=== PATIENT | female | born 1985 | race African-American/Black ===

== ENCOUNTER 2017-02-26 20:25 | Observation (INO) ==
--- NOTE | 2017-02-26 21:01 | Emergency Department Note ---
Arrival - Arrival Chief Complaint: Abscess Stated Complaint: RISEN ON BUTT AND HURTS BADLY ED Nursing Triage Note: Pt to [facility]ino with c/o risen between her butt cheek that she noticed on yesterday. Pt states the risen has been drainning. Mode of Arrival: Ambulatory Limitations: No Limitations Source: Patient, RN Notes Reviewed Time Seen by Provider: 02/26/17 20:41 - History of Present Illness HPI Narrative: The patient complains of an abscess of the left buttocks which came up yesterday. She states it has been draining today. She denies any fever. Her only complaint is pain. She has no history of previous abscess. She does have a history of diabetes. The patient is on Depo-Provera and cannot recall her last menstrual period. The last Depo shot was in July. Allergies/Adverse Reactions: Allergies Allergy/AdvReac Type Severity Reaction Status Date / Time No Known Allergies Allergy Verified 02/26/17 20:32 Home Medications: Home Medications Medication Instructions Recorded Confirmed Type Clotrimazole [Clotrimazole 1% 1 applic TOP BID #15 gm 10/11/16 02/26/17 Rx Cream] Metformin HCl 500 mg PO BID 10/11/16 02/26/17 History hydroCHLOROthiazide 25 mg PO DAILY 10/11/16 02/26/17 History [Hydrochlorothiazide] valACYclovir [Valtrex] 500 mg PO BID 02/26/17 02/26/17 History Review of System - Review of System 12 point system: reviewed and no additional remarkable complaints except as stated - Review of System Constitutional: Absent: fever Respiratory: Absent: cough Gastrointestinal: Absent: abdominal pain, nausea, vomiting, diarrhea, constipation Genitourinary female: Present: abnormal menses (On Depo-Provera). Absent: dysuria Medical,Surgical,& Family Hx - Medical History Cardio: History of: Hypertension Endocrine: History of: Diabetes Mellitus (NIDDM) - Surgical History Surgical History: noncontributory - Family History Family History: Reports;: Family Cancer, Family Diabetes, Family Hypertension - Social History Smoking Status: Current every day smoker Frequency of Alcohol Use: None Type of Drug Use: None Exam Physical Examination: GENERAL: Alert. No acute distress. HEENT: Normocephalic and atraumatic. There is no nasal drainage. No pharyngeal erythema or exudate. NECK: Normal inspection. Supple. No lymphadenopathy or meningismus. LUNGS: No respiratory distress. Clear to auscultation bilaterally, no wheezes, rales or rhonchi. HEART: Regular rate and rhythm. ABDOMEN: Soft, nontender and nondistended with normoactive bowel sounds. Rectal: Tender. No obvious mass on digital exam. There is a large abscess of the left buttocks extending down to the perianal and perineal area. There is a small area in the perineum that is draining purulent fluid. Examination of the abscess is somewhat limited due to the patient's morbid obesity. BACK: Normal inspection. SKIN: Color normal. Warm and dry. EXTREMITIES: Nontender. Normal range of motion. NEUROLOGICAL/PSYCHIATRIC: Alert and oriented -3 with normal mood and affect. Vital Signs: Vital Signs Temperature 99.4 F 02/26/17 20:47 Pulse Rate 99 H 02/26/17 20:47 Respiratory Rate 20 02/26/17 20:47 Blood Pressure 155/55 02/26/17 20:47 O2 Sat by Pulse Oximetry 99 02/26/17 20:47 Course - Reevaluation(s) Reevaluation #1: I have discussed the patient with Dr. Dixon and will admit to him for I&D. Time: 20:59 Disposition Clinical Impression: Abscess of skin or subcutaneous tissue Case discussed with: patient, patient's family Disposition: Still a Patient Condition: Stable Time of Disposition: 21:05
[2017-02-26 21:16] LABS: Basophils # 0.1 10*3/uL (0.0-0.2); Basophils % 0.4 % (0.0-0.8); Eosinophils # 0.1 10*3/uL (0.0-0.87); Eosinophils % 0.8 % (0.00-10.9); Hematocrit 40.5 VOL% (35.7-47.0); Hemoglobin 13.5 GM/DL (12.0-16.0); Immature Granulocytes % 0.6 %; Immature Granulocytes Absolute 0.09 #; Lymphocytes # 2.8 10*3/uL (1.4-4.0); Lymphocytes % 19.9 % (21.3-54.2); Mean Corpuscular HGB Conc 33.3 GM/DL (32-36); Mean Corpuscular Hemoglobin 28 PG (27-34); Mean Corpuscular Volume 83.3 FL (87-102); Mean Platelet Volume 9.6 FL (9.6-12.0); Monocytes # 1.2 10*3/uL (0.11-0.8); Monocytes % 8.4 % (1.7-12.7); Neutrophils # 9.9 10*3/uL (1.4-7.4); Neutrophils % 69.9 % (38.7-73.9); Platelet Count 373 T/CUMM (130-400); Red Blood Count 4.86 MC/CUMM (3.8-5.5); Red Cell Distribution Width 13.9 % (9.3-17.3); White Blood Count 14.2 T/CUMM (4-12)
[2017-02-26 21:40] LABS: Calcium 9.6 MG/DL (8.5-10.1); Potassium 3.4 MMOL/L (3.5-5.1)
[2017-02-26 21:47] LABS: Apearance,Urine CLEAR (Clear); Bacteria,Urine Occasional /HPF (Few); Bilirubin,Urine Negative (Negative); Blood, Urine Negative (Negative); Glucose,Urine (UA) >=500 mg/dL (Negative); Ketones,Urine 5 mg/dL (Negative); Mucus,Urine Occasional /LPF (Occasional); Nitrite,Urine Negative (Negative); Protein,Urine Negative; RBC,Urine 3 /HPF (0-4); Squamous Epithelial Cell,Urine Occasional /HPF (0-10); Urine Color Yellow (Yellow); Urine Specific Gravity 1.031 (1.001-1.035); Urine Urobilinogen < 2.0 EU/DL (0.2-1.0); WBC,Urine 2 /HPF (0-6)
[2017-02-26] MEDS ORDERED: ACETAMINOPHEN 325 MG TABLET PO PRN (22:19)
[2017-02-26] MEDS ORDERED: PROMETHAZINE 25 MG/1 ML VIAL IM PRN (22:19)
[2017-02-26] MEDS ORDERED: ONDANSETRON 4 MG/2 ML VIAL IV PRN (22:19)
[2017-02-26] MEDS ORDERED: HYDROmorphone 2 MG/1 ML VIAL IV PRN (22:19)
[2017-02-26] MEDS: SODIUM CHLORIDE 0.45% 1,000 ML IV SCH (23:08)
[2017-02-26] MEDS: PIPERACILLIN/TAZOBACTAM 3,375 MG in SODIUM CHLORIDE 0.9% 100 ML IV SCH (23:08)
[2017-02-27] MEDS: PIPERACILLIN/TAZOBACTAM 3,375 MG in SODIUM CHLORIDE 0.9% 100 ML IV SCH (05:47)
[2017-02-27] MEDS: SODIUM CHLORIDE 0.45% 1,000 ML IV SCH ×3 (07:35→21:47)
--- NOTE | 2017-02-27 07:48 | EKG Report ---
Stationary ECG Study [facility] Test Date: 02/26/2017 9:20:54 PM Pat Name: SARAI TRAYLOR Department: Room: 328 Gender: F [employer]: : 1985 Requested by: Mitchell Rodriguez Order Number: [id number] Reading MD: YANDEL SALTER Intervals [place] Rate: 93 P: 60 VT: 167 QRS: 68 QRSD: 96 T: -13 QT: 352 QTc: 403 Interpretive Statements SINUS RHYTHM NONSPECIFIC T-WAVE ABNORMALITY Electronically Signed On 02-27-17 15:53:43 CDT by YANEDL SALTER [email or web address]
--- NOTE | 2017-02-27 08:20 | General Surg History&Physical ---
Assessment and Plan (1) Abscess of skin or subcutaneous tissue Status: Acute Assessment and plan: The patient has anal pain that prohibits an adequate exam at the bedside and a leukocytosis. Abscess of the most likely possibility. I have recommended exam in the operating room with drainage of abscess but of also discussed the possibility of anal fissure, hemorrhoids, and fistula in anal. I discussed the risks, benefits, and alternatives of the proposed treatments with the patient, and the expected outcomes have been reviewed. She would like to proceed with the operation Current Visit: Yes History of Present Illness Chief complaint: Anal pain History of present illness: Ms. Sinclair is a 31 year old female who is admitted to the ER with leukocytosis and anal pain. She has never had problems like this before. She has had a C- section no other surgery. Home Medications Medication Instructions Recorded Confirmed Type Clotrimazole [Clotrimazole 1% 1 applic TOP BID #15 gm 10/11/16 02/26/17 Rx Cream] Metformin HCl 500 mg PO BID 10/11/16 02/26/17 History hydroCHLOROthiazide 25 mg PO DAILY 10/11/16 02/26/17 History [Hydrochlorothiazide] valACYclovir [Valtrex] 500 mg PO BID 02/26/17 02/26/17 History Allergies Allergy/AdvReac Type Severity Reaction Status Date / Time No Known Allergies Allergy Verified 02/26/17 20:32 Medical,Surgical,& Family Hx - Medical History Cardio: History of: Hypertension Endocrine: History of: Diabetes Mellitus (NIDDM) - Surgical History Reproductive Surgeries: Surgical HX of;: Section (3) - Family History Family History: Reports;: Family Cancer, Family Diabetes, Family Hypertension - Social History Smoking Status: Current every day smoker Frequency of Alcohol Use: None Type of Drug Use: None Exam - Constitutional Vitals: Period Temp Pulse Resp BP Sys/Bravo Pulse Ox Last 24 Hr 97.4 F-99.4 F 89-121 18-20 103-155/55-124 92-99 General appearance: no acute distress, morbidly obese - Head Head exam: Present: normal inspection, normocephalic - Eye Eye exam: Present: EOMI - ENT ENT exam: Present: normal exam Mouth exam: Present: normal external inspection, normal voice - Neck Neck exam: Present: normal inspection, trachea midline - Respiratory Respiratory exam: Absent: accessory muscle use, prolonged expiratory phase - Cardiovascular Cardiovascular exam: Present: RRR. Absent: systolic murmur, tachycardia - GI/Abdominal GI/Abdominal exam: Absent: distended - Anus/Rectum Anus/Rectum: other (Patient is significantly tender so her rectal exam was deferred but she has significant pain and an area of swelling per ER physician) - Extremities Exam Extremities exam: Present: normal inspection, normal capillary refill - Back Exam Back exam: Present: normal inspection - Neurological Exam Neurological exam: Present: alert, oriented X3 Speech: Present: normal - Constitutional Constitutional: Present: as per HPI - EENT Nose, mouth and throat: Present: as per HPI - Cardiovascular Cardiovascular: Present: as per HPI - Respiratory Respiratory: Present: as per HPI - Gastrointestinal Gastrointestinal: Present: as per HPI - Genitourinary Genitourinary: Present: as per HPI - Musculoskeletal Musculoskeletal: Present: as per HPI - Neurological Neurological: Present: as per HPI - Endocrine Endocrine: Present: as per HPI Hematologic/Lymphatic: Present: as per HPI Results - Labs CBC & BMP: 02/26/17 20:55 02/26/17 20:55
--- NOTE | 2017-02-27 08:33 | XRay Report ---
History: Respiratory preop evaluation Date: 02/26/2017 Study: Chest x-ray AP portable Comparison exam: No previous chest x-ray currently available The cardiomediastinal silhouette and pulmonary vasculature are unremarkable. The lungs and pleural spaces are clear. The osseous structures are unremarkable. Shallow inspiration. Breast shadows are superimposed over the lower lungs bilaterally. Impression: No definite acute cardiopulmonary process when accounting for shallow inspiration and technique. PROCEDURE INTERPRETED AT [facility] DEPARTMENT OF RADIOLOGY Final Report Signed by: Dr. Alanis Kwon
[2017-02-27] MEDS ORDERED: BUPIVACAINE MPF 0.25% /EPI 30 ML VIAL ONE (10:13)
--- NOTE | 2017-02-27 11:09 | Operative Note ---
Date of procedure: 02/27/17 Pre-op diagnosis: Perianal abscess Post-op diagnosis: same Procedure: Preoperative diagnosis Perianal abscess Postoperative diagnosis Same Procedures performed 1. Rectal examination under anesthesia 2. Incision and drainage of complex left perianal abscess Findings Complex left perianal abscess with no obvious evidence of fistula to the rectum. Counterincision was made and loculations were broken up digitally. A Golden drain was placed and the wound was packed. Blood loss Minimal Anesthesia General LMA Specimen Cultures Indications Left perianal abscess Description of procedure The patient was taken to the operating room and transferred to the operating table in the supine position. Pressure points were padded and SCDs were placed to the bilateral lower extremities. General anesthesia was administered with an LMA. The patient was placed in lithotomy position. The perineum was prepped with Betadine and draped. Timeout was called. Rectal exam under anesthesia demonstrated no masses or significant hemorrhoidal tissue. There is a firm area over the left perianal tissues with fluctuance and this was opened with an 11 blade scalpel. Pus was drained and cultured. The abscess cavity was broken up there were many loculations. The cavity itself was very large and required a counterincision was made with an 11 blade scalpel and the incisions were irrigated with an A[place]pto and connected with a Golden drain. The [place] drain was sewn to itself with 3-0 nylon sutures. The wound was packed with moist Kerlix and then covered with a dry dressing and ABD with mesh underwear. The patient was awakened from anesthesia and transferred to recovery room. Postoperative plan Glycemic control with wound care and antibiotics Implants: golden drain packing Anesthesia: ELBA, local Surgeon / Physician: Quan Dixon Estimated blood loss: minimal Specimens: other (cultures) Condition: stable Disposition: PACU Results - Labs CBC & BMP: 02/26/17 20:55 02/26/17 20:55 Discharge Plan - Discharge Data Disposition: Disch To Home/Self Care Condition at Discharge: Stable Discharge Diet: advance to your usual diet Activity: resume usual activities as tolerated Hygiene: may shower Weight Bearing at Discharge: weight bear as tolerated Driving: other (Do not drive or operate heavy machinery for at least 24 hours and after you are off of narcotic pain medications.) Contact your physician if you experience:: fever over 101, Difficulty voiding, Redness or swelling, Nausea/Vomiting, Shortness of breath, Bleeding, pain uncontrolled by pain medications Wound / Dressing Care Instructions: Clean the wound with soap and water daily. Sit in a sitz bath after each bowel movement. - Discharge Medications New Sulfameth/Trimeth 800-160 Tab [Bactrim DS Tab] 1 tablet PO BID #14 tablet HYDROcodone/ACETAMIN 7.5-325 [[place] 7.5-325] 1 tablet PO Q4H PRN #15 tablet PRN Reason: Pain Moderate (4-7) Continue Metformin HCl 500 mg PO BID Clotrimazole [Clotrimazole 1% Cream] 1 applic TOP BID #15 gm valACYclovir [Valtrex] 500 mg PO BID hydroCHLOROthiazide [Hydrochlorothiazide] 25 mg PO DAILY - Follow Up or Referral Follow Up: Quan Dixon MD [Physician] - 1 Week - Forms/Instructions
[2017-02-27] MEDS ORDERED: SUGAMMADEX 200 MG/2 ML VIAL IV ONE (11:13)
[2017-02-27] MEDS ORDERED: RACEPINEPHRINE 0.5 ML NEB RESP TX ONE ×2 (11:16→11:21)
[2017-02-27] MEDS ORDERED: HYDROmorphone 2 MG/1 ML VIAL IV PRN (11:20)
[2017-02-27] MEDS ORDERED: ONDANSETRON 4 MG/2 ML VIAL IV PRN (11:20)
[2017-02-27] MEDS ORDERED: PROMETHAZINE 25 MG/1 ML VIAL ONE (11:22)
[2017-02-27] MEDS ORDERED: LACTATED RINGERS 1,000 ML IV SCH (11:30)
[2017-02-27] MEDS ORDERED: SEVOFLURANE 1 UNIT/15 MINUTE INH ONE (11:35)
[2017-02-27] MEDS ORDERED: fentaNYL 100 MCG/2 ML VIAL ONE (11:36)
[2017-02-27] MEDS ORDERED: NEOSTIGMINE 10 MG/10 ML VIAL ONE (11:36)
[2017-02-27] MEDS ORDERED: MIDAZOLAM 2 MG/2 ML VIAL ONE (11:36)
[2017-02-27] MEDS ORDERED: HYDROmorphone 2 MG/1 ML VIAL ONE (11:36)
[2017-02-27] MEDS ORDERED: DEXTROSE 50% 25 GM/50 ML SYRINGE IV PRN (12:17)
[2017-02-27] MEDS ORDERED: GLUCAGON 1 MG VIAL IM PRN (12:17)
[2017-02-27] MEDS: INSULIN REGULAR 100 UNIT/ML SUBCUT SCH ×3 (13:58→21:44)
[2017-02-27] MEDS: CLOTRIMAZOLE 1% CREAM 15 GM TUBE TOP SCH ×2 (13:59→20:13)
[2017-02-27] MEDS: PANTOPRAZOLE 40 MG TABLET PO SCH (13:59)
[2017-02-27] MEDS: SULFAMETHOX/TRIMETHOPRIM 800-160 MG TABLET PO SCH ×2 (13:59→20:13)
[2017-02-27] MEDS: metFORMIN 500 MG TABLET PO SCH (20:12)
[2017-02-27] MEDS: valACYclovir 500 MG TABLET PO SCH (20:12)
[2017-02-28] MEDS: PHENOL 1.4% THROAT SPRAY 177 ML BOTTLE PO PRN ×2 (04:49→09:34)
[2017-02-28] MEDS: SODIUM CHLORIDE 0.45% 1,000 ML IV SCH ×2 (05:56→18:41)
[2017-02-28] MEDS: INSULIN REGULAR 100 UNIT/ML SUBCUT SCH ×4 (09:32→20:42)
[2017-02-28] MEDS: hydroCHLOROthiazide 25 MG TABLET PO SCH (09:33)
[2017-02-28] MEDS: SULFAMETHOX/TRIMETHOPRIM 800-160 MG TABLET PO SCH ×2 (09:33→20:41)
[2017-02-28] MEDS: metFORMIN 500 MG TABLET PO SCH ×2 (09:33→20:41)
[2017-02-28] MEDS: valACYclovir 500 MG TABLET PO SCH ×2 (09:33→20:41)
[2017-02-28] MEDS: PANTOPRAZOLE 40 MG TABLET PO SCH (09:33)
[2017-02-28] MEDS: CLOTRIMAZOLE 1% CREAM 15 GM TUBE TOP SCH ×2 (09:34→20:44)
--- NOTE | 2017-02-28 13:03 | Event Note ---
T-max 100.3 vital signs stable wound looks good with no purulence. There is some erythema present. No significant induration. [place] is in place. Repacked around the [place]. Continue antibiotics.
[2017-03-01] MEDS: SODIUM CHLORIDE 0.45% 1,000 ML IV SCH ×2 (03:48→06:26)
[2017-03-01] MEDS: valACYclovir 500 MG TABLET PO SCH (09:29)
[2017-03-01] MEDS: INSULIN REGULAR 100 UNIT/ML SUBCUT SCH ×2 (09:29→13:47)
[2017-03-01] MEDS: PANTOPRAZOLE 40 MG TABLET PO SCH (09:29)
[2017-03-01] MEDS: hydroCHLOROthiazide 25 MG TABLET PO SCH (09:29)
[2017-03-01] MEDS: SULFAMETHOX/TRIMETHOPRIM 800-160 MG TABLET PO SCH (09:30)
[2017-03-01] MEDS: metFORMIN 500 MG TABLET PO SCH (09:30)
[2017-03-01] MEDS: CLOTRIMAZOLE 1% CREAM 15 GM TUBE TOP SCH (09:31)
--- NOTE | 2017-03-01 10:52 | Discharge Summary ---
Hospital Course - Hospital Course Hospital Course: Status post I&D with [place] placement by Dr. Dixon. Patient is doing well. Her erythema has resolved. She grew out gram-positive cocci is being treated with Bactrim p.o. She has been afebrile and her vital signs are stable. The wounds appear clean and the erythema has resolved. There is no induration. She wants to go home. 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 Dixon later this week. She will continue Bactrim 1 week and she has a prescription for pain medicine. She is instructed to call for any nausea vomiting worsening pain abnormal drainage purulence redness fever or any other complaint. Specialty Discharge - Follow Up or Referrals Follow up with: Quan Dixon MD [Physician] - 03/09/17 12:45 pm (please bring medicines, insurance cards and photo id to your appointment.) Discharge Plan - Discharge Data Disposition: Disch To Home/Self Care - Discharge Medications New Sulfameth/Trimeth 800-160 Tab [Bactrim DS Tab] 1 tablet PO BID #14 tablet HYDROcodone/ACETAMIN 7.5-325 [[place] 7.5-325] 1 tablet PO Q4H PRN #15 tablet PRN Reason: Pain Moderate (4-7) Continue Metformin HCl 500 mg PO BID Clotrimazole [Clotrimazole 1% Cream] 1 applic TOP BID #15 gm valACYclovir [Valtrex] 500 mg PO BID hydroCHLOROthiazide [Hydrochlorothiazide] 25 mg PO DAILY - Follow Up or Referral Follow Up: Quan Dixon MD [Physician] - 03/09/17 12:45 pm (please bring medicines, insurance cards and photo id to your appointment.) - Forms/Instructions Exam - Constitutional Vitals: Period Temp Pulse Resp BP Sys/Bravo Pulse Ox Last 24 Hr 97.2 F-98.9 F 85-110 16-22 113-140/46-83 96-98 Discharge Results Procedures and tests throughout hospitalization: Pending Orders 02/26/17 21:07 Blood Culture Stat 02/26/17 22:00 Abscess Culture Stat 02/27/17 Abscess Culture Routine Anaerobic Culture Routine Labs on day of discharge: Labs from last 24 hours 03/01/17 02/28/17 02/28/17 07:27 19:38 15:40 POC Glucose 247 H 324 H 292 H 02/28/17 11:46 POC Glucose 325 H Preliminary micro results at discharge 02/26/17 22:00 Abscess Culture - Preliminary Buttock - Left Gram Positive Cocci 02/27/17 Unknown Abscess Culture - Preliminary Rectum Gram Positive Cocci 02/26/17 21:07 Blood Culture - Preliminary Blood No growth at 1 day 02/26/17 20:55 Blood Culture - Preliminary Blood No growth at 1 day DS: Provider Date of admission: 02/26/17 21:06 Primary care physician: . No PCP Attending physician on admission: Quan Dixon MD Consults: 02/27/17 08:18 Consult to Anesthesiology [CONS] Routine Consulting Provider: Reason for Anesthesiology: Pre-op Clearance Discharging clinician: Jason Helm MD
[2017-03-01 13:23] VITALS: BP 137/82
== END 2017-03-01 14:40 | disposition home or self-care (01) ==
LOC: N.EDINP 20:25 → N.ED 20:25 → N.EDINP 21:54 → N.3E 22:06
PROVIDERS: ADMIT Surgery; ATTEND Surgery

== ENCOUNTER 2017-12-03 08:39 | Observation (INO) ==
[~2017-12-03 08:39] MED LIST: LACTATED RINGERS 1,000 ML IV SCH; ceFAZolin 1,000 MG VIAL ONE
[2017-12-03] MEDS ORDERED: GLUCAGON 1 MG VIAL IM PRN ×2 (09:27→15:03)
[2017-12-03] MEDS ORDERED: DEXTROSE 50% 25 GM/50 ML VIAL IV PRN ×2 (09:27→15:03)
[2017-12-03] MEDS ORDERED: INSULIN REGULAR 100 UNIT/ML ONE (09:40)
[2017-12-03] MEDS: INSULIN REGULAR 100 UNIT/ML SUBCUT SCH ×5 (09:42→21:48)
[2017-12-03 09:49] LABS: Basophils # 0.1 10*3/uL (0.0-0.2); Basophils % 0.3 % (0.0-0.8); Eosinophils # 0.2 10*3/uL (0.0-0.87); Eosinophils % 1.2 % (0.00-10.9); Hematocrit 38.1 VOL% (35.7-47.0); Hemoglobin 13.2 GM/DL (12.0-16.0); Immature Granulocytes % 0.4 %; Immature Granulocytes Absolute 0.06 #; Lymphocytes # 2.6 10*3/uL (1.4-4.0); Lymphocytes % 17.6 % (21.3-54.2); Mean Corpuscular HGB Conc 34.6 GM/DL (32-36); Mean Corpuscular Hemoglobin 31 PG (27-34); Mean Corpuscular Volume 88.2 FL (87-102); Mean Platelet Volume 9.1 FL (9.6-12.0); Monocytes # 0.8 10*3/uL (0.11-0.8); Monocytes % 5.2 % (1.7-12.7); Neutrophils # 11.1 10*3/uL (1.4-7.4); Neutrophils % 75.3 % (38.7-73.9); Platelet Count 399 T/CUMM (130-400); Red Blood Count 4.32 MC/CUMM (3.8-5.5); Red Cell Distribution Width 12.3 % (9.3-17.3); White Blood Count 14.7 T/CUMM (4-12)
[2017-12-03] MEDS ORDERED: ceFAZolin 1,000 MG in SYRINGE 1 EACH IV ONE (11:00)
[2017-12-03] MEDS ORDERED: PROPOFOL 200 MG/20 ML VIAL IV ONE (12:28)
[2017-12-03] MEDS ORDERED: SEVOFLURANE 1 UNIT/15 MINUTE INH ONE (12:29)
[2017-12-03] MEDS ORDERED: fentaNYL 100 MCG/2 ML VIAL ONE (12:29)
[2017-12-03] MEDS ORDERED: MIDAZOLAM 2 MG/2 ML VIAL ONE (12:29)
[2017-12-03] MEDS ORDERED: LIDOCAINE 1% 5 ML VIAL ONE (12:29)
[2017-12-03] MEDS ORDERED: ONDANSETRON 4 MG/2 ML VIAL ONE (12:29)
[2017-12-03] MEDS: MORPHINE 10 MG/1 ML VIAL IV PRN ×3 (12:52→13:39)
[2017-12-03] MEDS: MORPHINE 4 MG/1 ML VIAL IV PRN ×2 (16:04→22:51)
[2017-12-03 17:04] LABS: Alanine Aminotransferase 19 U/L (13-56); Albumin 2.8 G/DL (3.4-5.0); Alkaline Phosphatase 94 U/L (45-117); Aspartate Amino Transferase 21 U/L (0-37); Bilirubin,Total < 0.39 MG/DL (0.2-1.0); Blood Urea Nitrogen 4 MG/DL (7-18); Calcium 8.8 MG/DL (8.5-10.1); Glucose 236 MG/DL (74-106); Osmolality,Calculated 279.7 MOS/KG (273-304); Sodium 138 MMOL/L (136-145); Total Protein 7.6 G/DL (6.4-8.3)
[2017-12-03] MEDS: LACTATED RINGERS 1,000 ML IV SCH (19:35)
[2017-12-03] MEDS ORDERED: ENOXAPARIN 40 MG/0.4 ML SYRINGE SUBCUT SCH (21:00)
[2017-12-03] MEDS ORDERED: valACYclovir 500 MG TABLET PO SCH (21:00)
[2017-12-03] MEDS: SULFAMETHOX/TRIMETHOPRIM 800-160 MG TABLET PO SCH (21:48)
[2017-12-03] MEDS: valACYclovir 500 MG TABLET PO SCH (21:49)
[2017-12-04] MEDS: LACTATED RINGERS 1,000 ML IV SCH (04:23)
[2017-12-04] MEDS: MORPHINE 4 MG/1 ML VIAL IV PRN ×2 (05:15→09:42)
[2017-12-04 05:18] LABS: Basophils # 0.1 10*3/uL (0.0-0.2); Basophils % 0.3 % (0.0-0.8); Eosinophils # 0.3 10*3/uL (0.0-0.87); Eosinophils % 1.9 % (0.00-10.9); Hematocrit 36.3 VOL% (35.7-47.0); Hemoglobin 12.1 GM/DL (12.0-16.0); Immature Granulocytes % 0.5 %; Immature Granulocytes Absolute 0.08 #; Lymphocytes # 3.3 10*3/uL (1.4-4.0); Lymphocytes % 22.6 % (21.3-54.2); Mean Corpuscular HGB Conc 33.3 GM/DL (32-36); Mean Corpuscular Hemoglobin 30 PG (27-34); Mean Corpuscular Volume 89.6 FL (87-102); Mean Platelet Volume 9.4 FL (9.6-12.0); Monocytes % 6.8 % (1.7-12.7); Neutrophils # 9.9 10*3/uL (1.4-7.4); Neutrophils % 67.9 % (38.7-73.9); Platelet Count 390 T/CUMM (130-400); Red Blood Count 4.05 MC/CUMM (3.8-5.5); Red Cell Distribution Width 12.2 % (9.3-17.3); White Blood Count 14.6 T/CUMM (4-12)
[2017-12-04 05:36] LABS: Calcium 8.5 MG/DL (8.5-10.1); Potassium 2.8 MMOL/L (3.5-5.1)
[2017-12-04] MEDS ORDERED: KETOROLAC 30 MG/1 ML VIAL IV PRN (07:42)
[2017-12-04] MEDS: INSULIN REGULAR 100 UNIT/ML SUBCUT SCH ×2 (11:40→12:58)
[2017-12-04] MEDS: valACYclovir 500 MG TABLET PO SCH (11:41)
[2017-12-04] MEDS: SULFAMETHOX/TRIMETHOPRIM 800-160 MG TABLET PO SCH (11:41)
[2017-12-04] MEDS ORDERED: POTASSIUM CHLORIDE 20 MEQ TABLET PO ONE (15:33)
[2017-12-04 16:58] VITALS: BP 143/69
== END 2017-12-04 16:25 | disposition home or self-care (01) | DRG 364 ==
LOC: N.OR 08:39 → N.SDSINP 08:40 → N.3E 12:25 → INTOOBSV 12:25 → N.3E 15:02
PROVIDERS: ADMIT Surgery; ATTEND Surgery

== ENCOUNTER 2018-12-27 18:59 | Inpatient (IN) ==
[2018-12-27] MEDS ORDERED: ONDANSETRON 4 MG/2 ML VIAL IV STA (20:05)
[2018-12-27] MEDS ORDERED: PANTOPRAZOLE 40 MG VIAL IV STA (20:05)
[2018-12-27] MEDS ORDERED: SODIUM CHLORIDE 0.9% 500 ML IV STA (20:05)
[2018-12-27] MEDS ORDERED: ALUM/MAG/SIMETH/LIDO VISC 1:1 30 ML BOTTLE PO STA (20:05)
[2018-12-27] MEDS ORDERED: KETOROLAC 30 MG/1 ML VIAL IV STA (20:05)
[2018-12-27 20:39] LABS: Basophils % 0.3 % (0.0-0.8); Eosinophils # 0.1 10*3/uL (0.0-0.87); Eosinophils % 1.3 % (0.00-10.9); Hematocrit 45.5 VOL% (35.7-47.0); Immature Granulocytes % 0.5 %; Immature Granulocytes Absolute 0.05 #; Lymphocytes # 1.1 10*3/uL (1.4-4.0); Lymphocytes % 11.3 % (21.3-54.2); Mean Corpuscular Volume 87.2 FL (87-102); Monocytes % 4.9 % (1.7-12.7); Neutrophils % 81.7 % (38.7-73.9); Platelet Count 319 T/CUMM (130-400); Red Blood Count 5.22 MC/CUMM (3.8-5.5); Red Cell Distribution Width 12.5 % (9.3-17.3); White Blood Count 10.1 T/CUMM (4-12)
[2018-12-27 20:57] LABS: Albumin 3.2 G/DL (3.4-5.0); Bilirubin,Total 0.5 MG/DL (0.2-1.0); Calcium 8.5 MG/DL (8.5-10.1); Osmolality,Calculated 284.7 MOS/KG (273-304); Total Protein 7.4 G/DL (6.4-8.3)
[2018-12-27 21:18] LABS: Apearance,Urine CLEAR (Clear); Bacteria,Urine Occasional /HPF (Few); Bilirubin,Urine Negative (Negative); Blood, Urine Negative (Negative); Glucose,Urine (UA) >=500 mg/dL (Negative); Ketones,Urine 20 mg/dL (Negative); Mucus,Urine Few /LPF (Occasional); Nitrite,Urine Negative (Negative); Protein,Urine 30 MG/DL; RBC,Urine 1 /HPF (0-4); Squamous Epithelial Cell,Urine Occasional /HPF (0-10); Transitional Epi Cells,Urine Occasional /HPF (<1); Urine Color Yellow (Yellow); Urine Urobilinogen < 2.0 EU/DL (0.2-1.0); WBC,Urine 39 /HPF (0-6)
[2018-12-27] MEDS ORDERED: cefTRIAXone 1,000 MG in SODIUM CHLORIDE 0.9% 100 ML IV STA (21:21)
[2018-12-27] MEDS ORDERED: PIPERACILLIN/TAZOBACTAM 3,375 MG in SODIUM CHLORIDE 0.9% 100 ML IV STA (22:01)
[2018-12-27] MEDS ORDERED: GLUCAGON 1 MG VIAL IM PRN (23:13)
[2018-12-27] MEDS ORDERED: DEXTROSE 50% 25 GM/50 ML VIAL IV PRN (23:13)
[2018-12-27] MEDS ORDERED: ONDANSETRON 4 MG/2 ML VIAL IV PRN (23:13)
[2018-12-28] MEDS: INSULIN REGULAR 100 UNIT/ML SUBCUT SCH ×5 (02:39→21:44)
[2018-12-28] MEDS: ENOXAPARIN 40 MG/0.4 ML SYRINGE SUBCUT SCH (02:40)
[2018-12-28] MEDS: PIPERACILLIN/TAZOBACTAM 3,375 MG in SODIUM CHLORIDE 0.9% 100 ML IV SCH ×3 (06:33→21:41)
[2018-12-28 07:05] LABS: Basophils % 0.3 % (0.0-0.8); Eosinophils # 0.1 10*3/uL (0.0-0.87); Hematocrit 40.2 VOL% (35.7-47.0); Hemoglobin 13.2 GM/DL (12.0-16.0); Immature Granulocytes % 0.2 %; Immature Granulocytes Absolute 0.01 #; Lymphocytes # 1.4 10*3/uL (1.4-4.0); Lymphocytes % 23.4 % (21.3-54.2); Mean Corpuscular HGB Conc 32.8 GM/DL (32-36); Mean Corpuscular Volume 87.2 FL (87-102); Neutrophils % 68.1 % (38.7-73.9); Platelet Count 295 T/CUMM (130-400); Red Blood Count 4.61 MC/CUMM (3.8-5.5); Red Cell Distribution Width 12.4 % (9.3-17.3)
[2018-12-28] MEDS ORDERED: cefTRIAXone 1,000 MG in SYRINGE 1 EACH IV ONE (07:56)
[2018-12-28] MEDS: PANTOPRAZOLE 40 MG TABLET PO SCH (09:07)
[2018-12-29] MEDS: ENOXAPARIN 40 MG/0.4 ML SYRINGE SUBCUT SCH (00:19)
[2018-12-29] MEDS ORDERED: cefTRIAXone 1,000 MG in SYRINGE 1 EACH IV ONE (06:30)
[2018-12-29] MEDS: PIPERACILLIN/TAZOBACTAM 3,375 MG in SODIUM CHLORIDE 0.9% 100 ML IV SCH ×2 (08:33→15:00)
[2018-12-29] MEDS: INSULIN REGULAR 100 UNIT/ML SUBCUT SCH ×2 (09:18→12:43)
[2018-12-29] MEDS ORDERED: DEXTROSE 10% 250 ML BAG IV PRN (10:23)
[2018-12-29] MEDS ORDERED: GLUCAGON 1 MG VIAL IM PRN (10:23)
[2018-12-29] MEDS: PANTOPRAZOLE 40 MG TABLET PO SCH (10:28)
[2018-12-29 12:33] VITALS: BP 132/90
== END 2018-12-29 15:20 | disposition home or self-care (01) | DRG 465 ==
LOC: N.ED 18:59 → N.EDINP 18:59 → SUATTDRO 23:13 → N.3E 12-28
PROVIDERS: ADMIT Internal Medicine; ATTEND Hospitalist